=== PATIENT | female | born 1985 | race Caucasian/White ===

== ENCOUNTER 2017-10-12 13:33 | Emergency (ER) | payer OTHER ==
[~2017-10-12] VITALS: Ht 162.6 cm; Wt 49.9 kg
[~2017-10-12 13:33] MED LIST: ACET325 PO; ACETAMINOPHEN; AMOX500 PO; Amoxicillin875 MG PO; CIPR500 PO; CODACE30 PO; CODBUTACEC PO; Crutch1 EACH MISC; DIPATR PO; FAMO20 PO; IBUP800 PO; LEVFLO500 PO; METO10 PO; NAPR500 PO; ONDA4 PO; PHENA200; PRENZ; PROM25 PO; PSEU30 PO; RXANTBENOT AU; RXPROM25 PO; RXSULTRIDS
[2017-10-12] MEDS ORDERED: SERT50 (13:39)
[2017-10-12] MEDS ORDERED: Klonopin0.5 MG PO (13:57)
== END 2017-10-12 14:00 | disposition home or self-care (01) ==
LOC: ER 13:33
DX: S40.022A Contusion of left upper arm, initial encounter (principal); S40.021A Contusion of right upper arm, initial encounter; F41.9 Anxiety disorder, unspecified; F32.9 Major depressive disorder, single episode, unspecified; Y04.8XXA Assault by other bodily force, initial encounter; Z88.2 Allergy status to sulfonamides; Z88.8 Allergy status to other drugs, medicaments and biological substances; Z79.899 Other long term (current) drug therapy; Z87.891 Personal history of nicotine dependence
CPT/HCPCS: 99282

== ENCOUNTER 2018-06-21 10:33 | Emergency (ER) | payer OTHER ==
[~2018-06-21] VITALS: Ht 162.6 cm; Wt 54.4 kg
[~2018-06-21 10:33] MED LIST changes: +Klonopin0.5 MG PO; +SERT50
[2018-06-21] MEDS ORDERED: Floxin10 ML LEFTEAR (10:50)
[2018-06-21] MEDS ORDERED: Amoxicillin500 MG PO (10:50)
== END 2018-06-21 10:52 | disposition home or self-care (01) ==
LOC: ER 10:33
DX: H60.92 Unspecified otitis externa, left ear (principal); Z88.2 Allergy status to sulfonamides; Z88.1 Allergy status to other antibiotic agents; Z79.899 Other long term (current) drug therapy; Z87.891 Personal history of nicotine dependence
CPT/HCPCS: 99282

== ENCOUNTER 2018-10-22 16:37 | Emergency (ER) | payer OTHER ==
[~2018-10-22] VITALS: Ht 162.6 cm; Wt 56.7 kg
[~2018-10-22 16:37] MED LIST changes: +Amoxicillin500 MG PO; +Floxin10 ML LEFTEAR
[2018-10-22 17:05] LABS: Source, Urine Clean Catch
[2018-10-22 17:16] LABS: Bilirubin, Urine Neg (Neg); Blood, Urine Neg (Neg); Glucose Qualitative, Urine Neg (Neg); Ketones, Urine Neg (Neg); Leukocyte Esterase, Urine 1+ (Neg); Nitrite, Urine Neg (Neg); Protein, Urine 1+ (Neg); Specific Gravity, Urine 1.015 (1.003-1.022); Urobilinogen, Urine NORM (Normal)
[2018-10-22 17:24] LABS: BASOPHILS ABSOLUTE AUTO 0.07 K/mm3 (0.00-0.23); BASOPHILS PERCENT AUTO 1 % (0-2); EOSINOPHILS PERCENT AUTO 10 % (0-6); Hematocrit 37.6 % (33.0-51.0); Hemoglobin 12.1 g/dL (11.5-16.0); IMMATURE GRAN ABSOLUTE AUTO 0.04 K/mm3 (0.00-0.10); IMMATURE GRAN PERCENT AUTO 0 % (0-1); LYMPHOCYTES ABSOLUTE AUTO 3.88 K/mm3 (0.84-5.20); LYMPHOCYTES PERCENT AUTO 31 % (21-46); MONOCYTES ABSOLUTE AUTO 1.01 K/mm3 (0.16-1.47); MONOCYTES PERCENT AUTO 8 % (4-13); Mean Corpuscular HGB 30.3 pg (26.0-34.0); Mean Corpuscular HGB Conc 32.2 g/dL (31.5-36.5); Mean Corpuscular Volume 94 fL (80-100); Mean Platelet Volume 8.7 fL (9.1-12.4); NEUTROPHILS ABSOLUTE AUTO 6.19 K/mm3 (1.96-9.15); NEUTROPHILS PERCENT AUTO 50 % (41-73); Platelet Count 368 K/mm3 (150-400); RDW Coefficient Variation 12.4 % (11.7-14.2); Red Blood Cell Count 3.99 M/mm3 (3.80-5.20); White Blood Cell Count 12.49 K/mm3 (4.00-11.30)
[2018-10-22 17:38] LABS: Appearance, Urine Hazy (Clear); Color, Urine Yellow (P-Yellow)
[2018-10-22 17:40] LABS: Anion Gap 8 mmol/L (6-16); Blood Urea Nitrogen 11 mg/dL (8-24); Bun/Creatinine Ratio 17.7 (12.0-20.0); CO2, Blood 27 mmol/L (21-32); Calcium, Blood 8.5 mg/dL (8.5-10.1); Chloride, Blood 105 mmol/L (98-108); Creatinine, Blood 0.62 mg/dL (0.40-1.00); Glomerular Filtration Rate >60 (60-); Glucose, Blood 116 mg/dL (70-99); Potassium, Blood 4.1 mmol/L (3.5-5.5); Sodium, Blood 140 mmol/L (136-145)
[2018-10-22 17:40] LABS: Bacteria Few /hpf; Red Blood Cells, Urine 0-2 /hpf (0-2); Squamous Epithelial Cells Few /hpf (Few); White Blood Cells, Urine 0-2 /hpf (0-5)
[2018-10-23] MEDS ORDERED: IBUP400 PO (12:50)
[2018-10-23] MEDS ORDERED: Cyclobenzaprine5 MG PO (12:50)
[2018-10-23] MEDS ORDERED: Percocet 5-3251 EACH PO (12:50)
== END 2018-10-22 17:55 | disposition left against medical advice (07) ==
LOC: ER 16:37
PROVIDERS: Physician Assistant
DX: M54.5 Low back pain (principal); R00.0 Tachycardia, unspecified; D72.829 Elevated white blood cell count, unspecified
CPT/HCPCS: 36415; 80048; 81001; 81025; 85025; 87086; 99281

== ENCOUNTER 2018-10-23 09:06 | Emergency (ER) | payer OTHER ==
[~2018-10-23] VITALS: Ht 162.6 cm; Wt 56.7 kg
[2018-10-23] MEDS ORDERED: Cyclobenzaprine5 MG PO (12:50)
[2018-10-23] MEDS ORDERED: Percocet 5-3251 EACH PO (12:50)
[2018-10-23] MEDS ORDERED: IBUP400 PO (12:50)
== END 2018-10-23 13:01 | disposition home or self-care (01) ==
LOC: ER 09:06
DX: G89.29 Other chronic pain (principal); M54.5 Low back pain; Z88.2 Allergy status to sulfonamides; Z88.1 Allergy status to other antibiotic agents; F17.200 Nicotine dependence, unspecified, uncomplicated
CPT/HCPCS: 36415; 84702; 96374; 99283-25; J1885

== ENCOUNTER → 2019-10-27 | Outpatient (CLI) | payer OTHER ==
[~2019-10-27] MED LIST changes: +Cyclobenzaprine5 MG PO; +IBUP400 PO; +Percocet 5-3251 EACH PO
== END | disposition home or self-care (01) ==
LOC: LAB 18:29 → LAB SHORT 18:29
DX: N39.0 Urinary tract infection, site not specified (principal); R50.9 Fever, unspecified
CPT/HCPCS: 87086

== ENCOUNTER → 2020-03-10 | Outpatient (CLI) | payer OTHER ==
[2020-03-14 17:09] LABS: CHLAMYDIA TRACHOMATIS, NAA Negative (Negative); NEISSERIA GONORRHOEAE, NAA Negative (Negative)
== END ==
LOC: LAB 18:32 → LAB SHORT 18:32
PROVIDERS: Advanced Practice Midwife
DX: Z34.93 Encounter for supervision of normal pregnancy, unspecified, third trimester (principal)
CPT/HCPCS: 87081; 87491; 87591; 87653

== ENCOUNTER 2020-03-19 18:25 | Inpatient (IN) | payer OTHER ==
[~2020-03-19] VITALS: Ht 162.6 cm; Wt 69.0 kg
[2020-03-19] MEDS ORDERED: PRENATAL TABLE1 EAC2 PO (19:33)
[2020-03-19 20:33] LABS: BASOPHILS ABSOLUTE AUTO 0.03 K/mm3 (0.00-0.23); BASOPHILS PERCENT AUTO 0 % (0-2); EOSINOPHILS ABSOLUTE AUTO 0.17 K/mm3 (0.00-0.68); EOSINOPHILS PERCENT AUTO 2 % (0-6); Hematocrit 27.4 % (33.0-51.0); IMMATURE GRAN ABSOLUTE AUTO 0.11 K/mm3 (0.00-0.10); IMMATURE GRAN PERCENT AUTO 1 % (0-1); LYMPHOCYTES ABSOLUTE AUTO 2.57 K/mm3 (0.84-5.20); LYMPHOCYTES PERCENT AUTO 27 % (21-46); MONOCYTES ABSOLUTE AUTO 0.82 K/mm3 (0.16-1.47); MONOCYTES PERCENT AUTO 9 % (4-13); Mean Corpuscular HGB 21.7 pg (26.0-34.0); Mean Corpuscular HGB Conc 29.2 g/dL (31.5-36.5); Mean Platelet Volume 10.4 fL (9.1-12.4); NEUTROPHILS ABSOLUTE AUTO 5.95 K/mm3 (1.96-9.15); NEUTROPHILS PERCENT AUTO 62 % (41-73); NRBC ABSOLUTE 0.04 K/mm3 (0.00-0.02); NRBC Auto 0.4 /100 WBC (0.0-0.2); Platelet Count 241 K/mm3 (150-400); RDW Coefficient Variation 17.8 % (11.7-14.2); Red Blood Cell Count 3.69 M/mm3 (3.80-5.20); White Blood Cell Count 9.65 K/mm3 (4.00-11.30)
[2020-03-19 20:34] LABS: Mean Corpuscular Volume 74 fL (80-100)
[2020-03-19 20:56] LABS: PCO2 Cord - Arterial < 105 mmHg (40-50); PO2 Cord - Arterial > 13 mmHg (16-20); pH Cord - Arterial > 6.80 (7.28-7.35)
[2020-03-19 20:58] LABS: PCO2 Cord - Venous < 105 mmHg (40-50); PO2 Cord - Venous > 13 mmHg (28-32); pH Umbilical Cord - Venous > 6.80 (7.26-7.35)
[2020-03-20 03:44] LABS: U Amphetamine Screen Not Detected; U Barbituate Screen Not Detected; U Benzodiazapine Screen Not Detected; U Buprenorphine Screen Not Detected; U Cannabinoids Screen DETECTED; U Cocaine Screen Not Detected; U Methadone Screen Not Detected; U Methamphetamine Screen Not Detected; U Opiates Screen Not Detected; U Oxycodone Screen Not Detected; U Phencyclidine Screen Not Detected; U Propoxyphene Screen Not Detected
[2020-03-20 05:28] LABS: BASOPHILS ABSOLUTE AUTO 0.03 K/mm3 (0.00-0.23); BASOPHILS PERCENT AUTO 0 % (0-2); EOSINOPHILS ABSOLUTE AUTO 0.01 K/mm3 (0.00-0.68); EOSINOPHILS PERCENT AUTO 0 % (0-6); Hematocrit 28.4 % (33.0-51.0); Hemoglobin 8.2 g/dL (11.5-16.0); IMMATURE GRAN ABSOLUTE AUTO 0.15 K/mm3 (0.00-0.10); IMMATURE GRAN PERCENT AUTO 1 % (0-1); LYMPHOCYTES ABSOLUTE AUTO 0.97 K/mm3 (0.84-5.20); LYMPHOCYTES PERCENT AUTO 6 % (21-46); MONOCYTES PERCENT AUTO 2 % (4-13); Mean Corpuscular HGB Conc 28.9 g/dL (31.5-36.5); Mean Corpuscular Volume 76 fL (80-100); Mean Platelet Volume 10.8 fL (9.1-12.4); NEUTROPHILS ABSOLUTE AUTO 15.41 K/mm3 (1.96-9.15); NEUTROPHILS PERCENT AUTO 91 % (41-73); NRBC ABSOLUTE 0.02 K/mm3 (0.00-0.02); NRBC Auto 0.1 /100 WBC (0.0-0.2); Platelet Count 211 K/mm3 (150-400); RDW Coefficient Variation 17.7 % (11.7-14.2); RDW Standard Deviation 48.2 fL (35.1-46.3); Red Blood Cell Count 3.72 M/mm3 (3.80-5.20); White Blood Cell Count 16.87 K/mm3 (4.00-11.30)
--- NOTE | 2020-03-20 05:53 | NUR ---
DISCHARGE TEACHING TEACHING COMPLETED WITH PATIENT. VERBALIZES UNDERSTANDING AND HAS NO FURTHER QUESTIONS AT THIS TIME.
--- NOTE | 2020-03-20 10:04 | NUR ---
CORE REFERRAL FAXED FOR PT FOLLOW UP RESOURCE AT HOME. PT IS ALSO INTERESTED IN HEALTHY FAMILIES RESOURCE AND FILLED OUT FORMS FOR THAT.
[2020-03-20] MEDS ORDERED: IBUP800 PO (10:14)
[2020-03-20] MEDS ORDERED: FERSU300 PO (10:14)
--- NOTE | 2020-03-20 10:34 | NUR ---
1030PT DISCHARGED TO CARE OF HER MOTHER. WALKED OUT TO CAR BY THIS UNIT ASSISTANT. PT GAIT IS STEADY, VSS, ALERT AND ORIENTED x4. PT MOTHER IS DRIVING HER UP TO SEE HER BABY IN [place] AT [facility].
== END 2020-03-20 10:30 | disposition home or self-care (01) | DRG 807 ==
LOC: BC 18:25 → OBS 18:25 → BC 18:26 → OBS 19:26 → BC 19:27
PROVIDERS: ADMIT Family Medicine
PROC: 10E0XZZ Delivery of Products of Conception, External Approach (ICD-10-PCS; principal; 2020-03-19)
DX: O62.3 Precipitate labor (principal); Z37.0 Single live birth; T78.3XXA Angioneurotic edema, initial encounter; T36.0X5A Adverse effect of penicillins, initial encounter; Z3A.00 Weeks of gestation of pregnancy not specified; O99.824 Streptococcus B carrier state complicating childbirth
CPT/HCPCS: 36415; 82803; 85025; 86850; 86900; 86901; J0290; J1200; J1885; J2210; J2590; J7120; J7512; U0002

== ENCOUNTER 2020-06-18 15:12 | Emergency (ER) | payer OTHER ==
[~2020-06-18] VITALS: Ht 162.6 cm; Wt 54.4 kg
[~2020-06-18 15:12] MED LIST changes: +FERSU300 PO; +PRENATAL TABLE1 EAC2 PO
[2020-06-18 15:49] LABS: BASOPHILS ABSOLUTE AUTO 0.04 K/mm3 (0.00-0.23); BASOPHILS PERCENT AUTO 0 % (0-2); EOSINOPHILS ABSOLUTE AUTO 0.15 K/mm3 (0.00-0.68); EOSINOPHILS PERCENT AUTO 1 % (0-6); Hematocrit 39.3 % (33.0-51.0); Hemoglobin 12.3 g/dL (11.5-16.0); IMMATURE GRAN ABSOLUTE AUTO 0.04 K/mm3 (0.00-0.10); IMMATURE GRAN PERCENT AUTO 0 % (0-1); LYMPHOCYTES ABSOLUTE AUTO 0.91 K/mm3 (0.84-5.20); LYMPHOCYTES PERCENT AUTO 6 % (21-46); MONOCYTES ABSOLUTE AUTO 1.04 K/mm3 (0.16-1.47); MONOCYTES PERCENT AUTO 7 % (4-13); Mean Corpuscular HGB 26.2 pg (26.0-34.0); Mean Corpuscular HGB Conc 31.3 g/dL (31.5-36.5); Mean Corpuscular Volume 84 fL (80-100); Mean Platelet Volume 8.3 fL (9.1-12.4); NEUTROPHILS PERCENT AUTO 85 % (41-73); Platelet Count 398 K/mm3 (150-400); RDW Coefficient Variation 15.7 % (11.7-14.2); RDW Standard Deviation 45.9 fL (35.1-46.3); Red Blood Cell Count 4.69 M/mm3 (3.80-5.20); White Blood Cell Count 14.98 K/mm3 (4.00-11.30)
[2020-06-18 16:02] LABS: Source, Urine Clean Catch
[2020-06-18 16:13] LABS: Alanine Aminotransfer (ALT/SGP 20 U/L (12-78); Albumin, Blood 3.8 g/dL (3.4-5.0); Albumin/Globulin Ratio 0.8 (0.8-1.8); Alk Phos 103 U/L (50-136); Anion Gap 7 mmol/L (6-16); Aspartate Aminotrans (AST/SGOT 15 U/L (12-37); Bilirubin, Total 0.4 mg/dL (0.1-1.0); Blood Urea Nitrogen 7 mg/dL (8-24); Bun/Creatinine Ratio 11.7 (12.0-20.0); CO2, Blood 28 mmol/L (21-32); Calcium, Blood 9.1 mg/dL (8.5-10.1); Chloride, Blood 101 mmol/L (98-108); Globulin, Blood 4.7 g/dL (2.2-4.0); Glomerular Filtration Rate >60 (60-); Glucose, Blood 107 mg/dL (70-99); Potassium, Blood 3.7 mmol/L (3.5-5.5); Sodium, Blood 136 mmol/L (136-145); Total Protein, Blood 8.5 g/dL (6.4-8.2)
[2020-06-18 16:17] LABS: Bilirubin, Urine Neg (Neg); Blood, Urine 4+ (Neg); Glucose Qualitative, Urine Neg (Neg); Ketones, Urine Neg (Neg); Leukocyte Esterase, Urine 3+ (Neg); Nitrite, Urine Neg (Neg); Protein, Urine 3+ (Neg); Specific Gravity, Urine 1.015 (1.003-1.022); Urobilinogen, Urine NORM (Normal)
[2020-06-18 16:24] LABS: Appearance, Urine Turbid (Clear); Color, Urine Yellow (P-Yellow)
[2020-06-18 16:25] LABS: White Blood Cells, Urine TNTC /hpf (0-5)
[2020-06-18 16:26] LABS: Bacteria Mod /hpf; Red Blood Cells, Urine 25-50 /hpf (0-2); Squamous Epithelial Cells Rare /hpf (Few)
[2020-06-18] MEDS ORDERED: CEPH500 PO (16:46)
[2020-06-18] MEDS ORDERED: ONDA4ODT MM (16:46)
[2020-06-18] MEDS ORDERED: Norco 5-325 Ta1 EACH PO (16:46)
== END 2020-06-18 17:24 | disposition home or self-care (01) ==
LOC: ER 15:12
PROVIDERS: Emergency Medicine; Physician Assistant
DX: N10 Acute pyelonephritis (principal); Z88.2 Allergy status to sulfonamides; Z88.8 Allergy status to other drugs, medicaments and biological substances; Z87.891 Personal history of nicotine dependence
CPT/HCPCS: 36415; 80053; 81001; 81025; 85025; 87077; 87086; 87186; 96361; 96374; 96375; 99284-25; J0696; J1885; J7030

== ENCOUNTER 2020-09-25 16:48 | Emergency (ER) | payer OTHER ==
[~2020-09-25] VITALS: Ht 162.6 cm; Wt 52.2 kg
[~2020-09-25 16:48] MED LIST changes: +CEPH500 PO; +Norco 5-325 Ta1 EACH PO; +ONDA4ODT MM
[2020-09-25 17:20] LABS: BASOPHILS ABSOLUTE AUTO 0.05 K/mm3 (0.00-0.23); BASOPHILS PERCENT AUTO 0 % (0-2); EOSINOPHILS PERCENT AUTO 4 % (0-6); Hematocrit 37.2 % (33.0-51.0); Hemoglobin 11.7 g/dL (11.5-16.0); IMMATURE GRAN ABSOLUTE AUTO 0.06 K/mm3 (0.00-0.10); IMMATURE GRAN PERCENT AUTO 0 % (0-1); LYMPHOCYTES ABSOLUTE AUTO 1.76 K/mm3 (0.84-5.20); LYMPHOCYTES PERCENT AUTO 13 % (21-46); MONOCYTES ABSOLUTE AUTO 1.51 K/mm3 (0.16-1.47); MONOCYTES PERCENT AUTO 11 % (4-13); Mean Corpuscular HGB 27.3 pg (26.0-34.0); Mean Corpuscular HGB Conc 31.5 g/dL (31.5-36.5); Mean Corpuscular Volume 87 fL (80-100); Mean Platelet Volume 8.7 fL (9.1-12.4); NEUTROPHILS ABSOLUTE AUTO 9.86 K/mm3 (1.96-9.15); NEUTROPHILS PERCENT AUTO 72 % (41-73); Platelet Count 414 K/mm3 (150-400); RDW Standard Deviation 40.7 fL (35.1-46.3); Red Blood Cell Count 4.29 M/mm3 (3.80-5.20); White Blood Cell Count 13.74 K/mm3 (4.00-11.30)
[2020-09-25 17:37] LABS: International Normalized Ratio 0.93
[2020-09-25 17:45] LABS: Alanine Aminotransfer (ALT/SGP 19 U/L (12-78); Albumin, Blood 3.2 g/dL (3.4-5.0); Albumin/Globulin Ratio 0.7 (0.8-1.8); Alk Phos 103 U/L (50-136); Anion Gap 6 mmol/L (6-16); Aspartate Aminotrans (AST/SGOT 17 U/L (12-37); Bilirubin, Total 0.2 mg/dL (0.1-1.0); Blood Urea Nitrogen 8 mg/dL (8-24); Bun/Creatinine Ratio 13.1 (12.0-20.0); CO2, Blood 28 mmol/L (21-32); Calcium, Blood 9.3 mg/dL (8.5-10.1); Chloride, Blood 100 mmol/L (98-108); Creatinine, Blood 0.61 mg/dL (0.40-1.00); Globulin, Blood 4.3 g/dL (2.2-4.0); Glomerular Filtration Rate >60 (60-); Glucose, Blood 100 mg/dL (70-99); Potassium, Blood 3.7 mmol/L (3.5-5.5); Sodium, Blood 134 mmol/L (136-145); Total Protein, Blood 7.5 g/dL (6.4-8.2)
[2020-09-25 18:33] LABS: Source, Urine Catheter
[2020-09-25 18:37] LABS: Bilirubin, Urine Neg (Neg); Blood, Urine Neg (Neg); Glucose Qualitative, Urine Neg (Neg); Ketones, Urine Neg (Neg); Leukocyte Esterase, Urine Neg (Neg); Nitrite, Urine Neg (Neg); Protein, Urine 1+ (Neg); Specific Gravity, Urine 1.015 (1.003-1.022); Urobilinogen, Urine NORM (Normal); pH, Urine 6.5 (5.0-8.0)
[2020-09-25 18:52] LABS: Appearance, Urine Clear (Clear); Color, Urine Yellow (P-Yellow)
[2020-09-25] MEDS ORDERED: Vibramycin100 MG PO (20:01)
== END 2020-09-25 20:24 | disposition home or self-care (01) ==
LOC: ER 16:48
PROVIDERS: Physician Assistant
DX: L02.211 Cutaneous abscess of abdominal wall (principal); Z88.2 Allergy status to sulfonamides; Z88.0 Allergy status to penicillin; Z88.1 Allergy status to other antibiotic agents; F17.200 Nicotine dependence, unspecified, uncomplicated
CPT/HCPCS: 10060; 36415; 72193; 80053; 83605; 85025; 85610; 85730; 87086; 93005; 93010; 96374-59; 99284-25; J3010; J7120; P9612; Q9967

== ENCOUNTER 2023-10-13 21:13 | Emergency (ER) | payer OTHER ==
[~2023-10-13] VITALS: Ht 162.6 cm; Wt 61.2 kg
[~2023-10-13 21:13] MED LIST changes: +Vibramycin100 MG PO
[2023-10-13 21:27] VITALS: BP 120/90
[2023-10-13] MEDS ORDERED: Cleocin HCl150 MG PO (21:58)
== END 2023-10-13 22:06 | disposition home or self-care (01) ==
LOC: ER 21:13
DX: L02.412 Cutaneous abscess of left axilla (principal); F17.210 Nicotine dependence, cigarettes, uncomplicated; Z88.0 Allergy status to penicillin; Z88.1 Allergy status to other antibiotic agents; Z88.2 Allergy status to sulfonamides
CPT/HCPCS: 10060; 99283-25; A9270

== ENCOUNTER → 2025-02-02 | Outpatient (CLI) | payer OTHER ==
[~2025-02-02] MED LIST changes: +Cleocin HCl150 MG PO
[2025-02-02 20:44] LABS: Candida Group, PCR NOT DETECTED (NOT DETECT); Candida glabrata-krusei, PCR NOT DETECTED (NOT DETECT)
[2025-02-02 21:26] LABS: Bacterial Vaginosis PCR Positive (NEGATIVE)
== END ==
LOC: LAB 18:04 → LAB SHORT 18:04
DX: N89.8 Other specified noninflammatory disorders of vagina (principal)
CPT/HCPCS: 81515

== ENCOUNTER 2025-03-08 17:02 | Day surgery (SDC) | payer OTHER ==
[2025-03-08] VITALS (11 sets, daily range): BP systolic 114–130; BP diastolic 54–79
[~2025-03-08] VITALS: Ht 162.6 cm; Wt 54.4 kg
[2025-03-08] MEDS ORDERED: Lactated Ringer's 1,000 ML IV ONE ×2 (17:35→18:25)
[2025-03-08 17:49] LABS: BASOPHILS ABSOLUTE AUTO 0.07 K/mm3 (0.00-0.23); BASOPHILS PERCENT AUTO 0 % (0-2); EOSINOPHILS ABSOLUTE AUTO 0.01 K/mm3 (0.00-0.68); EOSINOPHILS PERCENT AUTO 0 % (0-6); Hematocrit 31.2 % (33.0-51.0); Hemoglobin 9.9 g/dL (11.5-16.0); IMMATURE GRAN ABSOLUTE AUTO 0.28 K/mm3 (0.00-0.10); IMMATURE GRAN PERCENT AUTO 1 % (0-1); LYMPHOCYTES ABSOLUTE AUTO 2.01 K/mm3 (0.84-5.20); LYMPHOCYTES PERCENT AUTO 9 % (21-46); MONOCYTES ABSOLUTE AUTO 1.12 K/mm3 (0.16-1.47); MONOCYTES PERCENT AUTO 5 % (4-13); Mean Corpuscular HGB 27.3 pg (26.0-34.0); Mean Corpuscular HGB Conc 31.7 g/dL (31.5-36.5); Mean Corpuscular Volume 86 fL (80-100); Mean Platelet Volume 8.6 fL (9.1-12.4); NEUTROPHILS ABSOLUTE AUTO 18.87 K/mm3 (1.96-9.15); NEUTROPHILS PERCENT AUTO 84 % (41-73); Platelet Count 551 K/mm3 (150-400); RDW Coefficient Variation 14.8 % (11.7-14.2); RDW Standard Deviation 46.9 fL (35.1-46.3); Red Blood Cell Count 3.63 M/mm3 (3.80-5.20); White Blood Cell Count 22.36 K/mm3 (4.00-11.30)
[2025-03-08 18:04] LABS: International Normalized Ratio 0.94; Prothrombin Time Results 10.4 Sec (9.7-11.5)
[2025-03-08 18:09] LABS: Albumin, Blood 3.6 g/dL (3.4-5.0); Bilirubin, Total 0.4 mg/dL (0.1-1.0); Bun/Creatinine Ratio 13.2 (12.0-20.0); Calcium, Blood 9.2 mg/dL (8.5-10.1); Creatinine, Blood 1.59 mg/dL (0.40-1.00); Globulin, Blood 3.7 g/dL (2.2-4.0); Potassium, Blood 4.3 mmol/L (3.5-5.5); Total Protein, Blood 7.3 g/dL (6.4-8.2)
[2025-03-08] MEDS ORDERED: NS 1,000 ML IV ONE (18:40)
[2025-03-08] MEDS ORDERED: propofoL 20 ML IV ONE (19:36)
[2025-03-08] MEDS ORDERED: Rocuronium Bromide 10 MG/ML 5ML Injection IV ONE (19:37)
[2025-03-08] MEDS ORDERED: SuccINYLCHOLINE Chloride 100 MG/5 ML 5MLSYR ONE (19:37)
[2025-03-08] MEDS ORDERED: FentaNYL Citrate 50 MCG/ML 2 ML Injection ONE (19:38)
[2025-03-08] MEDS ORDERED: CeFAZolin Sodium 1000 mg Vial ONE (20:31)
[2025-03-08] MEDS ORDERED: Bupivacaine 0.5% HCl 5 MG/ML 30MLVIAL ONE (20:46)
[2025-03-08] MEDS ORDERED: Ondansetron HCl 2 MG / ML 2ML Vial ONE (20:55)
[2025-03-08] MEDS ORDERED: Dexamethasone Sod Phos 10 MG/ML 1ML VIAL ONE (20:55)
[2025-03-08] MEDS ORDERED: Sugammadex Sodium 200 MG/2ML SDV (100 MG/ML) ONE (21:00)
[2025-03-08] MEDS ORDERED: Naloxone HCl 0.4MG / ML 1ML Vial IV PRN (22:05)
[2025-03-08] MEDS ORDERED: DiphenhydrAMINE HCL 25 MG Cap PO PRN (22:05)
[2025-03-08] MEDS ORDERED: Metoclopramide HCl 5MG / ML 2ML Vial IV PRN (22:05)
[2025-03-08] MEDS ORDERED: Lactated Ringer's 1,000 ML IV SCH (22:05)
[2025-03-08] MEDS ORDERED: OxyCODONE HCL 5 MG TAB PO PRN ×2 (22:05)
[2025-03-08] MEDS ORDERED: Ondansetron HCl 2 MG / ML 2ML Vial IV PRN (22:05)
[2025-03-08] MEDS ORDERED: HYDROmorphone HCl/Pf 1MG SYR IV PRN (22:10)
[2025-03-08] MEDS ORDERED: Simethicone 80 MG Chew PO PRN (22:10)
--- NOTE | 2025-03-08 22:15 | NUR ---
ARRIVAL TO UNIT PT ARRIVED TO UNIT ON GOURNEY FROM PACU. PT SLID TO BED USING SLIDER SHEET. PT ENDORSES PAIN TO ABD. A&O x4, SOMNOLENT POST-OP, ANSWERS QUESTIONS APPROPRIATELY, ROUSABLE TO VERBAL STIMULI. VSS. LAP SITE x3 c EXOFIN C/D/I. 2 PERSON MOD ASSIST TO TURN PT IN BED R/T PAIN. PT PLACED IN GOWN, ATTENS IN USE. NO DRAINAGE VISUALIZED FROM JAZLYN AREA. WATER & SNACKS PROVIDED, PT DENIES NAUSEA. ORIENTED TO ROOM, CALL LIGHT IN REACH.
[2025-03-08 23:04] LABS: BASOPHILS ABSOLUTE AUTO 0.04 K/mm3 (0.00-0.23); BASOPHILS PERCENT AUTO 0 % (0-2); EOSINOPHILS PERCENT AUTO 0 % (0-6); Hematocrit 33.6 % (33.0-51.0); Hemoglobin 10.9 g/dL (11.5-16.0); IMMATURE GRAN ABSOLUTE AUTO 0.15 K/mm3 (0.00-0.10); IMMATURE GRAN PERCENT AUTO 1 % (0-1); LYMPHOCYTES ABSOLUTE AUTO 1.41 K/mm3 (0.84-5.20); LYMPHOCYTES PERCENT AUTO 7 % (21-46); MONOCYTES ABSOLUTE AUTO 0.78 K/mm3 (0.16-1.47); MONOCYTES PERCENT AUTO 4 % (4-13); Mean Corpuscular HGB 27.6 pg (26.0-34.0); Mean Corpuscular HGB Conc 32.4 g/dL (31.5-36.5); Mean Corpuscular Volume 85 fL (80-100); Mean Platelet Volume 8.5 fL (9.1-12.4); NEUTROPHILS ABSOLUTE AUTO 16.96 K/mm3 (1.96-9.15); NEUTROPHILS PERCENT AUTO 88 % (41-73); Platelet Count 312 K/mm3 (150-400); RDW Coefficient Variation 14.9 % (11.7-14.2); RDW Standard Deviation 46.5 fL (35.1-46.3); Red Blood Cell Count 3.95 M/mm3 (3.80-5.20); White Blood Cell Count 19.34 K/mm3 (4.00-11.30)
[2025-03-08 23:28] LABS: Bun/Creatinine Ratio 15.5 (12.0-20.0); Calcium, Blood 8.1 mg/dL (8.5-10.1); Creatinine, Blood 0.97 mg/dL (0.40-1.00); Potassium, Blood 4.5 mmol/L (3.5-5.5)
[2025-03-09] MEDS ORDERED: Acetaminophen 500 MG Tab PO SCH
[2025-03-09 00:15] VITALS: BP 131/75
[2025-03-09 01:57] VITALS: BP 110/59
[2025-03-09 02:04] VITALS: BP 130/73
--- NOTE | 2025-03-09 05:46 | NUR ---
SHIFT SUMMARY POD 1 RUPTURED ECTOPIC REPAIR. NO ACUTE CHANGES OVERNIGHT. VSS. TOLERAING ORALS. PT REPORTS PAIN TOLERABLE, MEDICATED PER EMAR. VOIDING, NO DRAINAGE ON JAZLYN PAD. ENC AMBULATION THIS AM. LAP SITE x3 c EXOFIN C/D/I. ANTICIPATED D/C LATER TODAY. CALL LIGHT IN REACH, BED IN LOWEST POSITION, WILL REPORT TO DAY RN.
[2025-03-09 07:43] VITALS: BP 123/67
[2025-03-09] MEDS ORDERED: NS 250 ML IV PRN (08:20)
[2025-03-09] MEDS ORDERED: Polyethylene Glycol 3350 17 gm PO SCH (09:00)
[2025-03-09 14:55] VITALS: BP 131/71
--- NOTE | 2025-03-09 15:52 | NUR ---
DISCHARGE NOTE POD 1 LAP ECTOPIC REMOVAL. VSS. PAIN MANAGED WITH PRESCRIBED THERAPY. X3 LAP SITES W/ EXOFIN. UMBILICAL SITE W/ MINIMAL BRUISING. MINIMAL VAGINAL BLEEDING. TOLERATING PO INTAKE. VOIDING. CASE MANAGEMENT ABLE TO PROVIDE PATIENT WITH FOOD AND CLOTHING. IV REMOVED. WRITTEN AND VERBAL EDUCATION PROVIDED - PATIENT STATES UNDERSTANDING. PERSONAL BELONGINGS WITH PATIENT. PATIENTs FAMILY FRIEND, SONALI, TO TRANSPORT PATIENT HOME. PATIENT TRANSFERRED OFF UNIT VIA AT APPROX 1550. CALL LIGHT IN REACH.
== END 2025-03-09 15:55 | disposition home or self-care (01) ==
LOC: ER 17:02 → ORSCMMR 17:02 → SURS 19:25 → ER 19:25 → SURS 19:25 → ORSCMMR 19:28 → ER 19:28 → SURS 22:05 → ER 23:30 → EDSTATUS 23:30 → SURS 03-09 13:38 → ORSCMMR 03-09 15:55
PROVIDERS: Obstetrics & Gynecology; Student in an Organized Health Care Education/Training Program
PROC: 0UT64ZZ Resection of Left Fallopian Tube, Percutaneous Endoscopic Approach (ICD-10-PCS; principal; 2025-03-08 20:00)
DX: O00.102 Left tubal pregnancy without intrauterine pregnancy (principal); F17.210 Nicotine dependence, cigarettes, uncomplicated; K66.1 Hemoperitoneum; N17.9 Acute kidney failure, unspecified; D62 Acute posthemorrhagic anemia; Z79.2 Long term (current) use of antibiotics; Z88.0 Allergy status to penicillin; Z88.2 Allergy status to sulfonamides
CPT/HCPCS: 36415; 36430; 71045; 76801; 76817; 80048; 80053; 82947; 83605; 84484; 84703; 85025; 85610; 85730; 86850; 86900; 86901; 86923; 87040; 88305; 93005; 93010; 99285-25; A9270; J0330; J0690; J1100; J1171; J2405; J2704; J3010; J7030; J7050; J7120; P9016

== ENCOUNTER 2025-03-10 10:38 | Emergency (ER) | payer OTHER ==
[~2025-03-10] VITALS: Ht 162.6 cm; Wt 54.4 kg
[2025-03-10 10:56] VITALS: BP 118/67
== END 2025-03-10 11:37 | disposition home or self-care (01) ==
LOC: ER 10:38
DX: Z53.21 Procedure and treatment not carried out due to patient leaving prior to being seen by health care provider (principal)
CPT/HCPCS: 99281-25

== ENCOUNTER 2025-03-12 09:22 | Emergency (ER) | payer OTHER ==
[~2025-03-12] VITALS: Ht 162.6 cm; Wt 54.4 kg
[2025-03-12] MEDS ORDERED: NS 1,000 ML IV SCH (09:45)
[2025-03-12] MEDS ORDERED: DiphenhydrAMINE HCl 50 MG/ML 1ML Vial IV ONE (09:55)
[2025-03-12] MEDS ORDERED: Ketorolac Tromethamine 30mg Vial IV ONE (09:55)
[2025-03-12] MEDS ORDERED: Metoclopramide HCl 5MG / ML 2ML Vial IV ONE (09:55)
[2025-03-12] MEDS ORDERED: METO10 PO (12:42)
[2025-03-12 13:23] VITALS: BP 121/74
== END 2025-03-12 13:23 | disposition home or self-care (01) ==
LOC: ER 09:22
DX: G43.909 Migraine, unspecified, not intractable, without status migrainosus (principal); F17.210 Nicotine dependence, cigarettes, uncomplicated; Z88.0 Allergy status to penicillin; Z88.1 Allergy status to other antibiotic agents
CPT/HCPCS: 70450; J1200; J1885; J2765; J7030